=== PATIENT | female | born 1955 | race Two or more races ===

== ENCOUNTER → 2017-02-09 | Day surgery (SDC) | payer BC ==
[2017-02-05 15:13] LABS: Basophils # (auto) 0 uL; Basophils % (auto) 0.3 % (0.0-2.0); Eosinophils # (auto) 0.1 uL; Eosinophils % (auto) 2.5 % (0.0-7.0); Hematocrit 37.7 % (36.0-46.0); Hemoglobin 12.8 g/dL (12.2-16.2); Lymphocytes # (auto) 0.5 uL; Lymphocytes % (auto) 17.1 % (10.0-50.0); Mean Corpuscular Hemoglobin 30.9 pg (28.0-32.0); Mean Corpuscular Hgb Conc. 33.8 g/dL (32.0-36.0); Mean Corpuscular Volume 91.4 fL (80.0-100.0); Mean Platelet Volume 8.8 fL (7.4-10.4); Monocytes # (auto) 0.3 uL; Monocytes % (auto) 9.8 % (0.0-12.0); Neutrophils # (auto) 2.2 uL; Neutrophils % (auto) 70.3 % (37.0-80.0); Platelet Count (auto) 81 10^3/uL (140-450); Red Cell Distribution Width 16.5 % (11.6-16.0); White Blood Cell 3.2 10^3/uL (4.4-10.8)
[2017-02-05 15:29] LABS: Partial Thromboplastin Time 29.5 sec (22.64-33.71)
[2017-02-05 15:39] LABS: INR 1.32 (0.9-1.15); Prothrombin Time 13.6 sec (9.37-12.3)
[~2017-02-09] VITALS: Ht 149.9 cm; Wt 72.1 kg
[~2017-02-09] MED LIST: LIDOCAINE VISCOUS 2% 15ML UD ONE; SILD50TA42 OR; SODIUM CHLORIDE LOCK 10 ML ONE; diphenhdrAMINE HCL 50 MG/1 ML VL ONE
[2017-02-09] MEDS: MIDAZOLAM HCL 5 MG/ML-1ML VIAL ONE ×2 (11:40→11:43)
[2017-02-09] MEDS: fentaNYL CITRATE 100 MCG/2 ML VL ONE ×2 (11:40→11:43)
[2017-02-09 12:25] VITALS: BP 121/69
== END | disposition home or self-care (01) ==
LOC: GI 09:08
PROVIDERS: ATTEND Internal Medicine Gastroenterology
DX: K76.6 Portal hypertension (principal); K31.89 Other diseases of stomach and duodenum; K74.60 Unspecified cirrhosis of liver; E66.9 Obesity, unspecified; Z90.710 Acquired absence of both cervix and uterus
CPT/HCPCS: 36415; 43235; 85025; 85610; 85730; J2250

== ENCOUNTER → 2017-02-25 | Outpatient (CLI) | payer BC ==
[~2017-02-25] MED LIST changes: -LIDOCAINE VISCOUS 2% 15ML UD ONE; -SODIUM CHLORIDE LOCK 10 ML ONE; -diphenhdrAMINE HCL 50 MG/1 ML VL ONE
== END | disposition home or self-care (01) ==
LOC: LAB 15:13
PROVIDERS: ATTEND Internal Medicine
DX: Z01.818 Encounter for other preprocedural examination (principal)
CPT/HCPCS: 36415; 82565; 84520

== ENCOUNTER → 2017-03-23 | Outpatient (CLI) | payer BC ==
[2017-03-23 10:06] LABS: Basophils # (auto) 0 uL; Basophils % (auto) 0.7 % (0.0-2.0); Eosinophils # (auto) 0.1 uL; Eosinophils % (auto) 3.3 % (0.0-7.0); Hematocrit 41.6 % (36.0-46.0); Hemoglobin 13.9 g/dL (12.2-16.2); Lymphocytes # (auto) 0.6 uL; Lymphocytes % (auto) 15.1 % (10.0-50.0); Mean Corpuscular Hemoglobin 30.8 pg (28.0-32.0); Mean Corpuscular Hgb Conc. 33.5 g/dL (32.0-36.0); Mean Corpuscular Volume 92.1 fL (80.0-100.0); Mean Platelet Volume 9.1 fL (7.4-10.4); Monocytes # (auto) 0.3 uL; Monocytes % (auto) 7.8 % (0.0-12.0); Neutrophils # (auto) 2.8 uL; Neutrophils % (auto) 73.1 % (37.0-80.0); Platelet Count (auto) 104 10^3/uL (140-450); Red Cell Distribution Width 15.6 % (11.6-16.0); White Blood Cell 3.8 10^3/uL (4.4-10.8)
[2017-03-23 10:11] LABS: Partial Thromboplastin Time 28.5 sec (22.64-33.71)
[2017-03-23 10:13] LABS: INR 1.26 (0.9-1.15); Prothrombin Time 13.6 sec (9.37-12.3)
[2017-03-23 10:17] LABS: Albumin 3.3 g/dL (3.4-5.0); Calcium 8.2 mg/dL (8.5-10.1); Potassium 4.5 mmol/L (3.5-5.1)
[2017-03-23 10:20] LABS: Bilirubin, Total 3.1 mg/dL (0.2-1.0); Total Protein 6.4 g/dL (6.4-8.2)
== END | disposition home or self-care (01) ==
LOC: LAB 08:46
PROVIDERS: ATTEND Internal Medicine
DX: B19.20 Unspecified viral hepatitis C without hepatic coma (principal); K74.60 Unspecified cirrhosis of liver
CPT/HCPCS: 36415; 80053; 82105; 84443; 85025; 85610; 85730

== ENCOUNTER → 2017-06-02 | Outpatient (CLI) | payer BC | END | disposition home or self-care (01) | LOC: EDSTATUS 08:35 → XYW 08:36 | PROVIDERS: ATTEND Internal Medicine | DX: I10 Essential (primary) hypertension (principal) | CPT/HCPCS: 93306 ==

== ENCOUNTER → 2017-07-31 | Outpatient (CLI) | payer BC ==
[2017-07-31 07:44] LABS: Basophils # (auto) 0 uL; Basophils % (auto) 0.6 % (0.0-2.0); Eosinophils # (auto) 0.1 uL; Eosinophils % (auto) 3.9 % (0.0-7.0); Hematocrit 41.1 % (36.0-46.0); Hemoglobin 13.9 g/dL (12.2-16.2); Lymphocytes # (auto) 0.7 uL; Lymphocytes % (auto) 19.6 % (10.0-50.0); Mean Corpuscular Hemoglobin 31.3 pg (28.0-32.0); Mean Corpuscular Hgb Conc. 33.8 g/dL (32.0-36.0); Mean Corpuscular Volume 92.6 fL (80.0-100.0); Mean Platelet Volume 9.1 fL (6.9-10.8); Monocytes # (auto) 0.4 uL; Monocytes % (auto) 10.7 % (0.0-12.0); Neutrophils # (auto) 2.5 uL; Neutrophils % (auto) 65.2 % (37.0-80.0); Nucleated Red Blood Cells % 0.1 %; Platelet Count (auto) 68 10^3/uL (140-450); Red Cell Distribution Width 15.6 % (11.8-14.3); White Blood Cell 3.8 10^3/uL (4.4-10.8)
[2017-07-31 08:05] LABS: Albumin 3.2 g/dL (3.4-5.0); BUN/Creatinine Ratio 27.9; Bilirubin, Total 3.2 mg/dL (0.2-1.0); Calcium 8.3 mg/dL (8.5-10.1); Potassium 4.5 mmol/L (3.5-5.1); Total Protein 6.4 g/dL (6.4-8.2)
== END | disposition home or self-care (01) ==
LOC: LAB 06:35
PROVIDERS: ATTEND Internal Medicine
DX: K73.9 Chronic hepatitis, unspecified (principal); K74.60 Unspecified cirrhosis of liver
CPT/HCPCS: 36415; 80053; 82105; 85025

== ENCOUNTER 2017-08-15 05:24 | Emergency (ER) | payer BC ==
[~2017-08-15] VITALS: Ht 149.9 cm; Wt 77.1 kg
[2017-08-15 07:57] LABS: Basophils # (auto) 0 uL; Eosinophils # (auto) 0 uL; Eosinophils % (auto) 0.9 % (0.0-7.0); Hemoglobin 13.7 g/dL (12.2-16.2); Lymphocytes # (auto) 0.4 uL; Mean Corpuscular Hemoglobin 31.2 pg (28.0-32.0); Mean Platelet Volume 8.5 fL (6.9-10.8); Monocytes # (auto) 0.3 uL; Neutrophils # (auto) 3.1 uL; White Blood Cell 3.9 10^3/uL (4.4-10.8)
[2017-08-15 07:59] LABS: Basophils % (auto) 0.3 % (0.0-2.0); Hematocrit 40.6 % (36.0-46.0); Lymphocytes % (auto) 11.4 % (10.0-50.0); Mean Corpuscular Hgb Conc. 33.7 g/dL (32.0-36.0); Mean Corpuscular Volume 92.6 fL (80.0-100.0); Monocytes % (auto) 8.8 % (0.0-12.0); Neutrophils % (auto) 78.6 % (37.0-80.0); Nucleated Red Blood Cells % 0.2 %; Red Cell Distribution Width 16.1 % (11.8-14.3)
[2017-08-15 08:15] LABS: Platelet Count (auto) 53 10^3/uL (140-450)
[2017-08-15 08:24] LABS: BUN/Creatinine Ratio 22.6; Calcium 7.8 mg/dL (8.5-10.1)
[2017-08-15 08:25] LABS: Bilirubin, Total 3.9 mg/dL (0.2-1.0); Total Protein 6.1 g/dL (6.4-8.2)
[2017-08-15] MEDS ORDERED: PANTOPRAZOLE 40 MG TAB PO ONE (08:45)
[2017-08-15 09:20] LABS: Large Platelets FEW; Platelet Estimate Decreased
[2017-08-15 09:21] LABS: Ovalocytes FEW
[2017-08-15] MEDS ORDERED: MORPHINE SULF INJ 2 MG/ML SYRINGE 1ML IV ONE (09:45)
[2017-08-15] MEDS ORDERED: ONDANSETRON HCL 4 MG/2 ML VIAL IV ONE (09:45)
[2017-08-15 10:02] LABS: Urine Bilirubin Negative (Negative); Urine Blood 2+ /uL (Negative); Urine Color Yellow (Yellow); Urine Glucose Normal (Normal); Urine Ketone Negative (Negative); Urine Nitrite Negative (Negative); Urine RBC 15 /hpf (0 - 4); Urine Squamous Epithelial Cell FEW /hpf (<5)
[2017-08-15 10:05] VITALS: BP 134/66
== END 2017-08-15 12:04 | disposition home or self-care (01) ==
LOC: ER 05:29
DX: K74.60 Unspecified cirrhosis of liver (principal); K76.9 Liver disease, unspecified; Z90.710 Acquired absence of both cervix and uterus; Z88.6 Allergy status to analgesic agent; Z88.8 Allergy status to other drugs, medicaments and biological substances
CPT/HCPCS: 36415; 74176; 80053; 81001; 85025; 96374; 96375; 99285; J2270; J2405; J7030

== ENCOUNTER → 2017-11-30 | Outpatient (CLI) | payer BC ==
[2017-11-30 08:51] LABS: Basophils # (auto) 0 uL; Basophils % (auto) 0.7 % (0.0-2.0); Eosinophils # (auto) 0.1 uL; Eosinophils % (auto) 2.6 % (0.0-7.0); Hematocrit 38.9 % (36.0-46.0); Hemoglobin 13.1 g/dL (12.2-16.2); Lymphocytes # (auto) 0.7 uL; Lymphocytes % (auto) 18.6 % (10.0-50.0); Mean Corpuscular Hemoglobin 31.4 pg (28.0-32.0); Mean Corpuscular Hgb Conc. 33.6 g/dL (32.0-36.0); Mean Corpuscular Volume 93.4 fL (80.0-100.0); Monocytes # (auto) 0.4 uL; Monocytes % (auto) 9.5 % (0.0-12.0); Neutrophils # (auto) 2.6 uL; Neutrophils % (auto) 68.6 % (37.0-80.0); Nucleated Red Blood Cells % 0.2 %; Platelet Count (auto) 88 10^3/uL (140-450); Red Blood Cells 4.17 10^6/uL (4.0-5.20); Red Cell Distribution Width 16.4 % (11.8-14.3); White Blood Cell 3.8 10^3/uL (4.4-10.8)
[2017-11-30 09:11] LABS: Albumin 3.1 g/dL (3.4-5.0); BUN/Creatinine Ratio 23.4; Bilirubin, Total 3.7 mg/dL (0.2-1.0); Calcium 7.6 mg/dL (8.5-10.1); Potassium 3.9 mmol/L (3.5-5.1); Total Protein 6.4 g/dL (6.4-8.2)
[2017-11-30 09:12] LABS: INR 1.2 (0.9-1.15); Prothrombin Time 13.1 sec (9.37-12.3)
== END | disposition home or self-care (01) ==
LOC: LAB 08:07
PROVIDERS: ATTEND Internal Medicine Gastroenterology
DX: B18.2 Chronic viral hepatitis C (principal); K31.89 Other diseases of stomach and duodenum; R18.8 Other ascites
CPT/HCPCS: 36415; 80053; 82105; 85025; 85610

== ENCOUNTER 2018-03-10 05:14 | Inpatient (IN) | payer BC ==
[~2018-03-10] VITALS: Ht 149.9 cm; Wt 79.8 kg
[2018-03-10 07:22] LABS: Anion Gap 9 (5-15); BUN/Creatinine Ratio 30.4; Blood Urea Nitrogen 17 mg/dL (7-18); Carbon Dioxide 21 mmol/L (21-32); Chloride 110 mmol/L (98-107); GFR African American 141 mL/min; GFR Non-African American 116 mL/min; Glucose 115 mg/dL (74-106); Potassium 3.8 mmol/L (3.5-5.1); Sodium 140 mmol/L (136-145)
[2018-03-10 07:23] LABS: Alanine Aminotransferase 55 U/L (13-56); Albumin 2.8 g/dL (3.4-5.0); Aspartate Aminotransferase 66 U/L (15-37); Basophils # (auto) 0 uL; Calcium 8.1 mg/dL (8.5-10.1); Eosinophils # (auto) 0.1 uL
[2018-03-10 07:27] LABS: Alkaline Phosphatase 164 U/L (45-117); Bilirubin, Total 4.5 mg/dL (0.2-1.0); Total Protein 6.7 g/dL (6.4-8.2)
[2018-03-10 07:29] LABS: Basophils % (auto) 0.6 % (0.0-2.0); Eosinophils % (auto) 2.1 % (0.0-7.0); Hematocrit 41.5 % (36.0-46.0); Lymphocytes # (auto) 0.7 uL; Mean Corpuscular Hgb Conc. 33.8 g/dL (32.0-36.0); Mean Corpuscular Volume 91.7 fL (80.0-100.0); Monocytes # (auto) 0.5 uL; Monocytes % (auto) 10.9 % (0.0-12.0); Neutrophils # (auto) 3.6 uL; Neutrophils % (auto) 72.4 % (37.0-80.0); Nucleated Red Blood Cells % 0.8 %; Platelet Count (auto) 62 10^3/uL (140-450); Red Blood Cells 4.52 10^6/uL (4.0-5.20); Red Cell Distribution Width 16.9 % (11.8-14.3)
[2018-03-10] MEDS ORDERED: KETOROLAC TROMETH 30 MG/ML 1ML VIAL IV ONE (07:45)
[2018-03-10] MEDS ORDERED: cefTRIAXone 1GM/10ml IVPUSH 10 ML IV ONE (07:45)
[2018-03-10] MEDS ORDERED: HYDROcodone-ACET 5/325MG TAB PO PRN (12:15)
[2018-03-10] MEDS ORDERED: LORazepam 0.5 MG TAB PO PRN (12:15)
[2018-03-10] MEDS ORDERED: PROMETHAZINE HCL 25 MG/ML 1ML IV PRN (12:15)
[2018-03-10] MEDS ORDERED: ACETAMINOPHEN 500 MG TAB PO PRN (12:15)
[2018-03-10] MEDS ORDERED: LACTULOSE 20Gm/30ML SOLN PO PRN (12:15)
[2018-03-10] MEDS ORDERED: MORPHINE SULFATE 8mg/ml INJ SDV IV PRN ×2 (12:15)
[2018-03-10] MEDS ORDERED: NITROGLYCERIN 0.4 MG SL TAB SL PRN (12:15)
[2018-03-10] MEDS: SODIUM CHLORIDE 0.9% 1,000 ML IV SCH (13:00)
[2018-03-10 14:31] LABS: Uric Acid 4.5 mg/dL (2.6-6.0)
[2018-03-10 15:15] VITALS: BP 120/57
[2018-03-10] MEDS: SILDENAFIL CITRATE 20 MG TAB PO SCH ×2 (15:16→21:20)
[2018-03-10] MEDS: CLINDAMYCIN 600MG IV 50 ML IV SCH ×2 (15:17→21:19)
[2018-03-10 15:29] VITALS: BP 140/64
[2018-03-10 16:23] LABS: INR 1.23 (0.9-1.15); Partial Thromboplastin Time 30.6 sec (22.64-33.71); Prothrombin Time 13.4 sec (9.37-12.3)
[2018-03-10 17:04] VITALS: BP 120/57
[2018-03-10] MEDS: TEMAZEPAM 15 MG CAP PO PRN (21:20)
[2018-03-10 22:00] VITALS: BP 127/60
[2018-03-10 22:25] LABS: Urine Bacteria NONE SEEN /hpf (None Seen); Urine Blood 1+ /uL (Negative); Urine Mucus FEW (None Seen); Urine Specific Gravity 1.031 (1.001-1.035); Urine WBC 36 /hpf (0 - 5)
[2018-03-11] MEDS: SODIUM CHLORIDE 0.9% 1,000 ML IV SCH ×2 (00:48→08:48)
[2018-03-11] MEDS: SILDENAFIL CITRATE 20 MG TAB PO SCH ×3 (05:12→21:17)
[2018-03-11] MEDS: CLINDAMYCIN 600MG IV 50 ML IV SCH ×3 (05:12→21:17)
[2018-03-11 05:28] VITALS: BP 113/55
[2018-03-11 05:59] LABS: Basophils # (auto) 0 uL; Eosinophils # (auto) 0.1 uL; Hematocrit 34.5 % (36.0-46.0); Hemoglobin 11.7 g/dL (12.2-16.2); Lymphocytes # (auto) 0.6 uL; Monocytes # (auto) 0.4 uL; Neutrophils # (auto) 2.3 uL
[2018-03-11 06:04] LABS: Basophils % (auto) 0.4 % (0.0-2.0); Eosinophils % (auto) 3.9 % (0.0-7.0); Lymphocytes % (auto) 16.7 % (10.0-50.0); Mean Corpuscular Hemoglobin 31.6 pg (28.0-32.0); Mean Corpuscular Volume 92.9 fL (80.0-100.0); Monocytes % (auto) 12.6 % (0.0-12.0); Neutrophils % (auto) 66.4 % (37.0-80.0); Nucleated Red Blood Cells % 0.3 %; Platelet Count (auto) 61 10^3/uL (140-450); Red Blood Cells 3.71 10^6/uL (4.0-5.20); Red Cell Distribution Width 16.9 % (11.8-14.3); White Blood Cell 3.4 10^3/uL (4.4-10.8)
[2018-03-11 06:37] LABS: Albumin 2.3 g/dL (3.4-5.0); BUN/Creatinine Ratio 46.5; Bilirubin, Total 2.7 mg/dL (0.2-1.0); Calcium 7.5 mg/dL (8.5-10.1); Potassium 3.8 mmol/L (3.5-5.1); Total Protein 5.5 g/dL (6.4-8.2)
[2018-03-11 09:00] VITALS: BP 109/42
[2018-03-11] MEDS: cefTRIAXone 1GM/10ml IVPUSH 10 ML IV SCH (09:06)
[2018-03-11] MEDS: PANTOPRAZOLE 40 MG TAB PO SCH (10:00)
[2018-03-11] MEDS ORDERED: ENOXAPARIN SOD 40 MG/0.4 ML SYRINGE SC SCH (10:00)
[2018-03-11 13:00] VITALS: BP 133/74
[2018-03-11 18:21] VITALS: BP 137/79
[2018-03-11] MEDS: TEMAZEPAM 15 MG CAP PO PRN (21:17)
[2018-03-11 22:00] VITALS: BP 133/68
[2018-03-12 05:12] VITALS: BP 94/33
[2018-03-12] MEDS: CLINDAMYCIN 600MG IV 50 ML IV SCH (05:21)
[2018-03-12] MEDS: SILDENAFIL CITRATE 20 MG TAB PO SCH (05:21)
[2018-03-12] MEDS: cefTRIAXone 1GM/10ml IVPUSH 10 ML IV SCH (08:49)
[2018-03-12 09:00] VITALS: BP 118/53
[2018-03-12] MEDS ORDERED: CLIN1CAP4 PO (09:53)
[2018-03-12] MEDS: PANTOPRAZOLE 40 MG TAB PO SCH (09:53)
[2018-03-12] MEDS ORDERED: FUROSEMIDE 40 MG/4 ML VIAL IV ONE (10:00)
[2018-03-12] MEDS ORDERED: ALBUMIN 25% 100 ML IV ONE (10:00)
[2018-03-12] MEDS ORDERED: POTASSIUM CHL 20 Meq TABLET PO ONE (10:00)
[2018-03-12] MEDS ORDERED: CELECOXIB 100 MG CAP PO SCH (10:00)
[2018-03-12 12:02] VITALS: BP 118/53
== END 2018-03-12 14:20 | disposition home or self-care (01) | DRG 433 ==
LOC: ER 05:17 → TELE 05:18 → TELE-WESTW 14:50 → WEST WING 03-11 17:33
PROVIDERS: ADMIT Internal Medicine; ATTEND Internal Medicine
DX: K74.60 Unspecified cirrhosis of liver (principal); L03.116 Cellulitis of left lower limb; D61.818 Other pancytopenia; E44.0 Moderate protein-calorie malnutrition; I27.0 Primary pulmonary hypertension; E78.5 Hyperlipidemia, unspecified; K59.00 Constipation, unspecified; F41.9 Anxiety disorder, unspecified; G47.00 Insomnia, unspecified; K80.20 Calculus of gallbladder without cholecystitis without obstruction; S91.302A Unspecified open wound, left foot, initial encounter; B19.20 Unspecified viral hepatitis C without hepatic coma; X58.XXXA Exposure to other specified factors, initial encounter; Z83.3 Family history of diabetes mellitus; Z90.710 Acquired absence of both cervix and uterus; Z68.35 Body mass index [BMI] 35.0-35.9, adult; Z79.899 Other long term (current) drug therapy; Y93.89 Activity, other specified; Y92.89 Other specified places as the place of occurrence of the external cause; Y99.8 Other external cause status
CPT/HCPCS: 36415; 73630; 73700; 80053; 80061; 81001; 83880; 84484; 84550; 85025; 85610; 85652; 85730; 87040; 93971; 96361; 96374; 96376; J1885; J3490; P9047

== ENCOUNTER 2018-06-29 09:41 | Inpatient (IN) | payer BC ==
[~2018-06-29] VITALS: Ht 149.9 cm; Wt 73.0 kg
[~2018-06-29 09:41] MED LIST changes: +FURO20TA PO; +POTA1TAB61 PO; +SPIR25TA88 PO
[2018-06-29 10:00] VITALS: BP 139/53
[2018-06-29] MEDS ORDERED: LEVO25TA6 PO (11:57)
[2018-06-29] MEDS ORDERED: PANT40TA2 PO (11:57)
[2018-06-29] MEDS ORDERED: PROP60CA34 PO (11:57)
[2018-06-29] MEDS ORDERED: FUROSEMIDE 40 MG/4 ML VIAL IV ONE (12:30)
[2018-06-29] MEDS ORDERED: POTASSIUM CHL 20 Meq TABLET PO ONE (12:30)
[2018-06-29 12:38] VITALS: BP_SYST 131; BP_SYST 140; BP_DIAS 61; BP_DIAS 73
[2018-06-29 13:09] LABS: Basophils # (auto) 0 uL; Eosinophils # (auto) 0.1 uL; Eosinophils % (auto) 2.3 % (0.0-7.0); Hemoglobin 11.5 g/dL (12.2-16.2); Lymphocytes # (auto) 0.4 uL; Mean Corpuscular Volume 90.8 fL (80.0-100.0); Monocytes # (auto) 0.3 uL; Platelet Count (auto) 58 10^3/uL (140-450); White Blood Cell 3.6 10^3/uL (4.4-10.8)
[2018-06-29 13:11] LABS: Basophils % (auto) 0.5 % (0.0-2.0); Hematocrit 33.8 % (36.0-46.0); Lymphocytes % (auto) 12.1 % (10.0-50.0); Mean Corpuscular Hemoglobin 30.9 pg (28.0-32.0); Monocytes % (auto) 7.8 % (0.0-12.0); Neutrophils # (auto) 2.8 uL; Neutrophils % (auto) 77.3 % (37.0-80.0); Nucleated Red Blood Cells % 0.1 %; Red Blood Cells 3.73 10^6/uL (4.0-5.20); Red Cell Distribution Width 16.1 % (11.8-14.3)
[2018-06-29] MEDS: ceFAZolin 1GM/50ML 50 ML IV SCH ×2 (13:14→21:59)
[2018-06-29] MEDS: SILDENAFIL CITRATE 20 MG TAB PO SCH ×2 (13:16→21:59)
[2018-06-29 13:25] LABS: Albumin 2.4 g/dL (3.4-5.0); BUN/Creatinine Ratio 40.7; Calcium 7.8 mg/dL (8.5-10.1); INR 1.33 (0.9-1.15); Partial Thromboplastin Time 29.6 sec (23.78-33.04); Potassium 4.1 mmol/L (3.5-5.1)
[2018-06-29 13:37] LABS: Bilirubin, Total 2.5 mg/dL (0.2-1.0)
[2018-06-29 16:54] VITALS: BP 125/65
[2018-06-29] MEDS: SPIRONOLACTONE 25 MG TAB PO SCH (17:33)
[2018-06-29 18:55] LABS: Urine Bacteria FEW /hpf (None Seen); Urine Blood 2+ /uL (Negative); Urine Specific Gravity 1.005 (1.001-1.035); Urine WBC 1 /hpf (0 - 5)
[2018-06-29 22:00] VITALS: BP 123/57
[2018-06-30] MEDS ORDERED: traMADol HCL 50 MG TAB PO ONE (02:00)
[2018-06-30 05:00] VITALS: BP 112/49
[2018-06-30] MEDS: SPIRONOLACTONE 25 MG TAB PO SCH ×2 (06:52→17:21)
[2018-06-30] MEDS: ceFAZolin 1GM/50ML 50 ML IV SCH ×3 (06:52→23:18)
[2018-06-30] MEDS: LEVOTHYROXINE SODIUM 25 MCG TAB PO SCH (06:53)
[2018-06-30 08:00] VITALS: BP 122/63
[2018-06-30] MEDS: SILDENAFIL CITRATE 20 MG TAB PO SCH ×3 (08:09→21:52)
[2018-06-30 08:28] VITALS: BP 122/63
[2018-06-30] MEDS: FUROSEMIDE 40 MG TAB PO SCH (09:37)
[2018-06-30] MEDS: POTASSIUM CHL 20 Meq TABLET PO SCH (09:37)
[2018-06-30] MEDS ORDERED: FUROSEMIDE 40 MG/4 ML VIAL IV ONE (11:15)
[2018-06-30] MEDS ORDERED: traMADol HCL 50 MG TAB PO PRN (11:15)
[2018-06-30] MEDS ORDERED: POTASSIUM CHL 20 Meq TABLET PO ONE (11:15)
[2018-06-30 12:30] VITALS: BP 122/85
[2018-06-30 16:36] VITALS: BP 111/57
[2018-06-30 21:30] VITALS: BP 115/54
[2018-07-01 05:00] VITALS: BP 116/56
[2018-07-01] MEDS: ceFAZolin 1GM/50ML 50 ML IV SCH ×2 (06:19→13:11)
[2018-07-01 06:42] LABS: Albumin 2.2 g/dL (3.4-5.0); BUN/Creatinine Ratio 35.9; Calcium 7.3 mg/dL (8.5-10.1); Potassium 3.9 mmol/L (3.5-5.1)
[2018-07-01 06:45] LABS: Bilirubin, Total 2.5 mg/dL (0.2-1.0); Total Protein 5.6 g/dL (6.4-8.2)
[2018-07-01] MEDS: LEVOTHYROXINE SODIUM 25 MCG TAB PO SCH (07:00)
[2018-07-01] MEDS: SPIRONOLACTONE 25 MG TAB PO SCH (07:06)
[2018-07-01] MEDS: SILDENAFIL CITRATE 20 MG TAB PO SCH ×2 (07:25→13:11)
[2018-07-01 08:00] VITALS: BP 114/57
[2018-07-01 09:07] VITALS: BP 114/57
[2018-07-01] MEDS: FUROSEMIDE 40 MG TAB PO SCH (09:29)
[2018-07-01] MEDS: POTASSIUM CHL 20 Meq TABLET PO SCH (09:29)
[2018-07-01 13:04] VITALS: BP 114/57
== END 2018-07-01 14:20 | disposition home or self-care (01) | DRG 603 ==
LOC: EAST 09:43
PROVIDERS: ADMIT Internal Medicine; ATTEND Internal Medicine
DX: L03.116 Cellulitis of left lower limb (principal); I27.20 Pulmonary hypertension, unspecified; K74.60 Unspecified cirrhosis of liver; E03.9 Hypothyroidism, unspecified; E87.70 Fluid overload, unspecified; B19.20 Unspecified viral hepatitis C without hepatic coma; Z88.5 Allergy status to narcotic agent
CPT/HCPCS: 36415; 73030; 80053; 81001; 84443; 85025; 85610; 85730; 87081; 93306; 93971; J0690

== ENCOUNTER 2018-07-27 10:56 | Emergency (ER) | payer BC ==
[~2018-07-27] VITALS: Ht 149.9 cm; Wt 68.0 kg
[~2018-07-27 10:56] MED LIST changes: -FURO20TA PO; +LEVO25TA6 PO; +PANT40TA2 PO; -POTA1TAB61 PO; +PROP60CA34 PO; -SPIR25TA88 PO
[2018-07-27 13:24] LABS: Basophils # (auto) 0 uL; Basophils % (auto) 0.3 % (0.0-2.0); Eosinophils # (auto) 0 uL; Lymphocytes # (auto) 0.4 uL; Monocytes # (auto) 0.3 uL; Neutrophils # (auto) 3.1 uL; Nucleated Red Blood Cells % 0.1 %; White Blood Cell 3.8 10^3/uL (4.4-10.8)
[2018-07-27 13:27] LABS: Eosinophils % (auto) 0.4 % (0.0-7.0); Hematocrit 36.5 % (36.0-46.0); Hemoglobin 12.3 g/dL (12.2-16.2); Lymphocytes % (auto) 9.8 % (10.0-50.0); Mean Corpuscular Hemoglobin 31.6 pg (28.0-32.0); Mean Corpuscular Hgb Conc. 33.8 g/dL (32.0-36.0); Mean Corpuscular Volume 93.4 fL (80.0-100.0); Monocytes % (auto) 7.2 % (0.0-12.0); Neutrophils % (auto) 82.3 % (37.0-80.0); Platelet Count (auto) 61 10^3/uL (140-450); Red Blood Cells 3.91 10^6/uL (4.0-5.20); Red Cell Distribution Width 16.2 % (11.8-14.3)
[2018-07-27 13:48] LABS: Albumin 2.8 g/dL (3.4-5.0); Bilirubin, Total 3.5 mg/dL (0.2-1.0); Potassium 4.4 mmol/L (3.5-5.1); Total Protein 6.8 g/dL (6.4-8.2)
[2018-07-27] MEDS ORDERED: LACTULOSE 20Gm/30ML SOLN PO ONE (14:30)
[2018-07-27 16:39] VITALS: BP 143/67
== END 2018-07-27 16:30 | disposition home or self-care (01) ==
LOC: ER 10:56
DX: K76.9 Liver disease, unspecified (principal); I10 Essential (primary) hypertension; Z90.710 Acquired absence of both cervix and uterus; Z88.6 Allergy status to analgesic agent
CPT/HCPCS: 36415; 70450; 80053; 82140; 82962; 83880; 84484; 85025; 93005

== ENCOUNTER → 2018-07-29 | Outpatient (CLI) | payer BC | END | disposition home or self-care (01) | LOC: LAB 13:30 | PROVIDERS: ATTEND Internal Medicine | DX: G93.40 Encephalopathy, unspecified (principal); Z88.9 Allergy status to unspecified drugs, medicaments and biological substances | CPT/HCPCS: 82140 ==

== ENCOUNTER → 2018-12-13 | Outpatient (CLI) | payer BC ==
[~2018-12-13] MED LIST changes: +CYANOCOBALAMIN (B-12) 1000 MCG/1 ML VIAL IM ONE; +CYANOCOBALAMIN (B-12) 1000 MCG/1 ML VIAL ONE
[2018-12-13 11:45] VITALS: BP 156/70
--- NOTE | 2018-12-13 11:45 | NUR ---
CHF PT TO CHF CLINIC FOR PAH REEVAL AND SOB. MD TO ORDERED MONTHLY CHF VISITS FOR PAH MED MANAGEMENT AND SYMPTOMS MANAGEMENT. MD TO ORDERED LABS, CARDIODYNAMICS, 6MW, VIT B 12 INJECTION 1000MCG IM.
[2018-12-13 13:15] VITALS: BP 156/70
--- NOTE | 2018-12-13 13:15 | NUR ---
CHF Discharge Instructions See e-MAR for any mediations given with this visit. Patient education given on disease process. Patient verbalized understanding. Previous labs reviewed. Patient discharged in stable condition with after care instructions and follow up appointment. FOLLOW UP IN 1 MONTH AT CHF CLINIC FOR PAH REEVAL. PT VERB UNDERSTANDING .
[2018-12-13 16:23] LABS: Basophils # (auto) 0 uL; Eosinophils # (auto) 0.1 uL; Hemoglobin 12.6 g/dL (12.2-16.2); Lymphocytes # (auto) 0.5 uL; Monocytes # (auto) 0.3 uL; Red Cell Distribution Width 15.6 % (11.8-14.3)
[2018-12-13 16:25] LABS: Albumin 2.6 g/dL (3.4-5.0); Basophils % (auto) 0.6 % (0.0-2.0); Calcium 7.7 mg/dL (8.5-10.1); Eosinophils % (auto) 2.9 % (0.0-7.0); Hematocrit 37.7 % (36.0-46.0); Lymphocytes % (auto) 16.5 % (10.0-50.0); Mean Corpuscular Hemoglobin 30.7 pg (28.0-32.0); Mean Corpuscular Hgb Conc. 33.4 g/dL (32.0-36.0); Mean Corpuscular Volume 91.9 fL (80.0-100.0); Monocytes % (auto) 10.3 % (0.0-12.0); Neutrophils # (auto) 2.2 uL; Neutrophils % (auto) 69.7 % (37.0-80.0); Nucleated Red Blood Cells % 0.2 %; Platelet Count (auto) 61 10^3/uL (140-450); Potassium 4.8 mmol/L (3.5-5.1); White Blood Cell 3.2 10^3/uL (4.4-10.8)
[2018-12-13 16:28] LABS: Bilirubin, Total 3.1 mg/dL (0.2-1.0); Total Protein 6.1 g/dL (6.4-8.2)
== END | disposition home or self-care (01) ==
LOC: CHF HDHVI 12:33
PROVIDERS: ATTEND Internal Medicine Cardiovascular Disease
DX: I27.0 Primary pulmonary hypertension (principal); E55.9 Vitamin D deficiency, unspecified; D64.9 Anemia, unspecified; B19.20 Unspecified viral hepatitis C without hepatic coma
CPT/HCPCS: 36415; 80053; 82306; 83735; 85025; 93701; 94618; 96372; G0463; J3420

== ENCOUNTER → 2019-01-04 | Outpatient (CLI) | payer BC ==
[~2019-01-04] MED LIST changes: -CYANOCOBALAMIN (B-12) 1000 MCG/1 ML VIAL IM ONE; -CYANOCOBALAMIN (B-12) 1000 MCG/1 ML VIAL ONE
[2019-01-04 14:58] LABS: Basophils # (auto) 0 uL; Eosinophils # (auto) 0.1 uL; Hemoglobin 11.7 g/dL (12.2-16.2); Lymphocytes # (auto) 0.5 uL; Monocytes # (auto) 0.3 uL; Monocytes % (auto) 8.9 % (0.0-12.0); Neutrophils # (auto) 2.1 uL
[2019-01-04 15:00] LABS: Basophils % (auto) 0.6 % (0.0-2.0); Eosinophils % (auto) 3.7 % (0.0-7.0); Hematocrit 34.9 % (36.0-46.0); Lymphocytes % (auto) 17.3 % (10.0-50.0); Mean Corpuscular Hemoglobin 30.4 pg (28.0-32.0); Mean Corpuscular Hgb Conc. 33.4 g/dL (32.0-36.0); Mean Corpuscular Volume 91.1 fL (80.0-100.0); Neutrophils % (auto) 69.5 % (37.0-80.0); Nucleated Red Blood Cells % 0.3 %; Platelet Count (auto) 58 10^3/uL (140-450); Red Blood Cells 3.84 10^6/uL (4.0-5.20); Red Cell Distribution Width 15.7 % (11.8-14.3)
[2019-01-04 15:10] LABS: INR 1.38 (0.9-1.15); Prothrombin Time 14.5 sec (9.27-12.13)
[2019-01-04 15:28] LABS: Albumin 2.7 g/dL (3.4-5.0); Calcium 7.9 mg/dL (8.5-10.1); Potassium 3.8 mmol/L (3.5-5.1)
[2019-01-04 15:31] LABS: BUN/Creatinine Ratio 30.2; Bilirubin, Total 3.2 mg/dL (0.2-1.0)
== END | disposition home or self-care (01) ==
LOC: LAB 14:22
PROVIDERS: ATTEND Internal Medicine
DX: K74.60 Unspecified cirrhosis of liver (principal); B18.2 Chronic viral hepatitis C
CPT/HCPCS: 36415; 80053; 82105; 85025; 85610; 87522

== ENCOUNTER 2019-01-31 22:04 | Inpatient (IN) | payer BC ==
[~2019-01-31] VITALS: Ht 149.9 cm; Wt 80.1 kg
[2019-01-31 22:58] LABS: Basophils # (auto) 0 uL; Basophils % (auto) 0.5 % (0.0-2.0); Eosinophils # (auto) 0.1 uL; Eosinophils % (auto) 2.3 % (0.0-7.0); Hematocrit 35.5 % (36.0-46.0); Hemoglobin 11.7 g/dL (12.2-16.2); Lymphocytes # (auto) 0.6 uL; Lymphocytes % (auto) 11.9 % (10.0-50.0); Mean Corpuscular Hemoglobin 30.5 pg (28.0-32.0); Mean Corpuscular Hgb Conc. 32.9 g/dL (32.0-36.0); Mean Corpuscular Volume 92.7 fL (80.0-100.0); Monocytes # (auto) 0.4 uL; Monocytes % (auto) 8.8 % (0.0-12.0); Neutrophils # (auto) 3.7 uL; Neutrophils % (auto) 76.5 % (37.0-80.0); Nucleated Red Blood Cells % 0.1 %; Platelet Count (auto) 66 10^3/uL (140-450); Red Blood Cells 3.83 10^6/uL (4.0-5.20); Red Cell Distribution Width 17.1 % (11.8-14.3); White Blood Cell 4.8 10^3/uL (4.4-10.8)
[2019-01-31 23:03] LABS: INR 1.34 (0.9-1.15); Partial Thromboplastin Time 28.1 sec (23.78-33.04); Prothrombin Time 14.1 sec (9.27-12.13)
[2019-01-31 23:04] LABS: Albumin 2.6 g/dL (3.4-5.0); BUN/Creatinine Ratio 24.7; Calcium 7.8 mg/dL (8.5-10.1); Potassium 4.1 mmol/L (3.5-5.1)
[2019-02-01] MEDS ORDERED: LEVOFLOXACIN 750MG 150 ML IV ONE (04:15)
[2019-02-01] MEDS ORDERED: PROMETHAZINE W/CODEINE 5 ML ORAL SYRUP PO PRN (05:00)
[2019-02-01] MEDS ORDERED: ALBUTEROL SULF 2.5 MG/0.5ML(0.5%) NEB SOLN NEB PRN ×2 (05:30→07:00)
[2019-02-01] MEDS ORDERED: MORPHINE SULF INJ 2 MG/ML SYRINGE 1ML IV PRN ×2 (07:00→07:15)
[2019-02-01] MEDS ORDERED: NITROGLYCERIN 0.4 MG SL TAB SL PRN (07:00)
[2019-02-01] MEDS ORDERED: ONDANSETRON HCL 4 MG/2 ML VIAL IV PRN (07:00)
[2019-02-01] MEDS ORDERED: TEMAZEPAM 15 MG CAP PO PRN (07:00)
[2019-02-01] MEDS ORDERED: ACETAMINOPHEN 325 MG TAB PO PRN (07:00)
[2019-02-01] MEDS ORDERED: FUROSEMIDE 20 MG/2 ML VIAL IV ONE (07:00)
--- NOTE | 2019-02-01 07:01 | NUR ---
Respiratory note: PT ASSESSED FOR PRN TX. HR 92, RR 18, POX 98% ON 2L/M NASAL CANNULA, BREATH SOUNDS ARE COARSE. NO SOB OF BREATH OR DISTRESS NOTED AT THIS TIME. PT WAS NOTIFY TO HAVE RN PAGE RT FOR MN TX.
[2019-02-01 07:08] VITALS: BP 145/57
[2019-02-01] MEDS: LEVOTHYROXINE SODIUM 25 MCG TAB PO SCH (07:58)
[2019-02-01] MEDS: SILDENAFIL CITRATE 20 MG TAB PO SCH ×3 (08:00→19:56)
[2019-02-01] MEDS ORDERED: FAMOTIDINE 20 MG TAB PO SCH (10:00)
[2019-02-01] MEDS: PROPRANOLOL HCL 20 MG TAB PO SCH (10:08)
[2019-02-01] MEDS: FUROSEMIDE 20 MG TAB PO SCH (10:09)
[2019-02-01] MEDS: PANTOPRAZOLE 40 MG TAB PO SCH (10:09)
--- NOTE | 2019-02-01 12:00 | NUR ---
CAME FROM ER ON WC, ALERT AND ORIENTED X4, NOT IN DISTRESS, MARYELLEN SOUNDS CLEAR IN BILATERAL AND LEFT LOWER AND DIMINISHED IN RT LOWER LUNG LOBES, RR=20 SAT=98%, COUGHING DRY COUGH, DENIED SOB, SR R=82 ON TELE MONITOR, DENIED CP, ABDOMEN SOFT WITH ACTIVE BS, LAST BM= THIS MORNING REPORTED, SKIN INTACT, WARM TO TOUCH, RADIAL AND PEDAL PULES PALPABLE, VS T=98.6 RR=20 SAT=98% P=85 DR=520/65, AMBULATED TO BR, TOLERATED WELL, PENDING CARDIAC CONSULT, FAMILY AT BED SIDE, WILL CONTINUE MONITORING.
[2019-02-01 12:30] VITALS: BP 109/65
[2019-02-01 13:02] VITALS: BP 116/52
--- NOTE | 2019-02-01 16:00 | NUR ---
SPUTUM SAMPLE FOR S/C SENT TO THE LAB, TOLERATED LUNCH TRAY WELL, RESTING ON BED, FAMILY AT BED SIDE, WILL CONTINUE MONITORING.
[2019-02-01 16:52] VITALS: BP 123/59
[2019-02-01] MEDS: SPIRONOLACTONE 25 MG TAB PO SCH (18:43)
--- NOTE | 2019-02-01 19:25 | NUR ---
NOT IN DISTRESS, DENIED PAIN, RESTING ON BED, REPORT WAS GIVEN TO THE PARTY COORDINATOR RN.
[2019-02-01] MEDS: IPRATROPIUM BROM 0.5 MG/2.5ML INH SOL NEB PRN (20:54)
[2019-02-01] MEDS: ALBUTEROL SULF 2.5 MG/0.5ML(0.5%) NEB SOLN NEB PRN (20:54)
[2019-02-01 22:00] VITALS: BP 109/52
[2019-02-01 22:34] LABS: Urine Bacteria FEW /hpf (None Seen); Urine Blood 2+ /uL (Negative); Urine Hyaline Cast FEW /lpf (0 - 2); Urine Mucus FEW (None Seen); Urine WBC <1 /hpf (0 - 5)
[2019-02-02] MEDS ORDERED: LEVOFLOXACIN 750MG 150 ML IV SCH (04:00)
[2019-02-02] MEDS: SPIRONOLACTONE 25 MG TAB PO SCH ×2 (05:33→17:32)
[2019-02-02 05:34] LABS: Basophils # (auto) 0 uL; Basophils % (auto) 0.5 % (0.0-2.0); Eosinophils # (auto) 0.2 uL; Eosinophils % (auto) 4.5 % (0.0-7.0); Hematocrit 34.7 % (36.0-46.0); Hemoglobin 11.6 g/dL (12.2-16.2); Lymphocytes # (auto) 0.6 uL; Lymphocytes % (auto) 13.7 % (10.0-50.0); Mean Corpuscular Hemoglobin 30.2 pg (28.0-32.0); Mean Corpuscular Hgb Conc. 33.4 g/dL (32.0-36.0); Mean Corpuscular Volume 90.6 fL (80.0-100.0); Monocytes # (auto) 0.5 uL; Monocytes % (auto) 11.4 % (0.0-12.0); Neutrophils # (auto) 3.2 uL; Neutrophils % (auto) 69.9 % (37.0-80.0); Nucleated Red Blood Cells % 0.1 %; Platelet Count (auto) 62 10^3/uL (140-450); Red Blood Cells 3.83 10^6/uL (4.0-5.20); Red Cell Distribution Width 16.8 % (11.8-14.3); White Blood Cell 4.6 10^3/uL (4.4-10.8)
[2019-02-02 05:40] LABS: Albumin 2.2 g/dL (3.4-5.0); Calcium 7.6 mg/dL (8.5-10.1)
[2019-02-02 05:44] LABS: BUN/Creatinine Ratio 27.5; Bilirubin, Total 2.6 mg/dL (0.2-1.0); Total Protein 5.3 g/dL (6.4-8.2)
[2019-02-02 05:45] VITALS: BP 103/49
[2019-02-02] MEDS: LEVOTHYROXINE SODIUM 25 MCG TAB PO SCH (06:43)
--- NOTE | 2019-02-02 07:45 | NUR ---
Opening Shift Note Assumed care of patient, awake and alert. No S/S of distress/SOB or pain. Instructed on POC and to call for assist PRN, will continue to monitor for changes Q1hr and PRN. Bed in lowest position, side rails up x2, call light within reach.
[2019-02-02 08:00] VITALS: BP 113/58
[2019-02-02 08:43] VITALS: BP 113/58
--- NOTE | 2019-02-02 09:07 | NUR ---
Respiratory note: ASSESSED PT FOR PRN TX PT WAS AWAKE AND ALERT NO RESP DISTRESS NOTED. HR 62, RR 16, SPO2 93% ON ROOM AIR. BS ARE CLEAR, NO INDICATION FOR TX AT THIS TIME. PT KNOWS TO HAVE RT PAGED IF TX IS NEEDED.
[2019-02-02] MEDS: SILDENAFIL CITRATE 20 MG TAB PO SCH ×3 (09:24→20:01)
[2019-02-02] MEDS: PROPRANOLOL HCL 20 MG TAB PO SCH (09:24)
[2019-02-02] MEDS: PANTOPRAZOLE 40 MG TAB PO SCH (09:24)
[2019-02-02] MEDS: FUROSEMIDE 20 MG TAB PO SCH (09:24)
--- NOTE | 2019-02-02 11:15 | NUR ---
ROUNDS/ZULEIKA PATIENT AMBULATING IN ROOM, GAIT STEADY AND STABLE, NO DISTRESS. RR EQUAL AND NONLABORED. FAMILY AT BEDSIDE. SPOKE WITH DR TO ON TELEPHONE AND HE PLANS FOR HEART CATH 02/03/2019, NO ORDERS IN COMPUTER AT THIS TIME, STATED HE WILL SEE PATIENT TOMORROW. PATIENT UPDATED ON POC. ALL QUESTIONS AND CONCERNS ADDRESSED.
[2019-02-02 12:08] VITALS: BP 114/74
[2019-02-02] MEDS: ALBUTEROL SULF 2.5 MG/0.5ML(0.5%) NEB SOLN NEB PRN (13:30)
[2019-02-02] MEDS: IPRATROPIUM BROM 0.5 MG/2.5ML INH SOL NEB PRN (13:30)
[2019-02-02 16:37] VITALS: BP 139/63
--- NOTE | 2019-02-02 19:40 | NUR ---
A&OX4, RESTING IN BED, ROOM AIR, NO PAIN, NO PITTING EDEMA +2, 4-5 SCARS ON HER RIGHT LEG, NO OPEN WOUNDS, REST OF THE SKIN IS INTACT, INDEPENDENT, BED LOCKED IN LOWEST POSITION, SIDE RAILS UP X2, CALL LIGHT WITHIN REACH. FAMILY IS AT BED SIDE. WILL CONTINUE TO ROUND.
[2019-02-02 22:00] VITALS: BP 118/63
--- NOTE | 2019-02-02 22:35 | NUR ---
Respiratory note: PT SEEN AND ASSESSED FOR PRN MED NEB TX AT 2235. TX NOT INDICATED AT THIS TIME. PT DISPLAYING NO SIGNS OF DISTRESS AT THIS TIME AND STATED THAT SHE HAS NOT FELT SHORT OF BREATH. HR 63 RR 18 POX 95% ON ROOM AIR. PT AWARE TO CALL FOR RT IF ANY DISTRESS OCCURS.
[2019-02-03 05:48] VITALS: BP 117/61
[2019-02-03] MEDS: SPIRONOLACTONE 25 MG TAB PO SCH ×2 (05:58→17:40)
[2019-02-03] MEDS: LEVOTHYROXINE SODIUM 25 MCG TAB PO SCH (05:59)
--- NOTE | 2019-02-03 07:20 | NUR ---
Opening Shift Note Assumed care of patient, awake and alert. No S/S of distress/SOB or pain. Instructed on POC and to call for assist PRN, will continue to monitor for changes Q1hr and PRN.
[2019-02-03 07:43] VITALS: BP 105/66
[2019-02-03 08:00] VITALS: BP 105/66
[2019-02-03] MEDS: SILDENAFIL CITRATE 20 MG TAB PO SCH ×3 (08:00→19:53)
--- NOTE | 2019-02-03 08:50 | NUR ---
Heart Cath Patient transported to warehouse general laborer for procedure
[2019-02-03] MEDS: PANTOPRAZOLE 40 MG TAB PO SCH (09:55)
[2019-02-03] MEDS: PROPRANOLOL HCL 20 MG TAB PO SCH (09:55)
[2019-02-03] MEDS: FUROSEMIDE 20 MG TAB PO SCH (09:55)
[2019-02-03] MEDS ORDERED: fentaNYL CITRATE 100 MCG/2 ML VL ONE (11:37)
[2019-02-03] MEDS ORDERED: MIDAZOLAM HCL 1MG/1ML-2 ML VIAL ONE (11:38)
[2019-02-03] MEDS ORDERED: LIDOCAINE 2%HCL (LOCAL ANESTH.) INJ 20ML MDV ONE (11:38)
[2019-02-03] MEDS: AMBRISENTAN 5 MG PO SCH (13:39)
[2019-02-03] MEDS ORDERED: SILDENAFIL CITRATE 20 MG TAB PO SCH ×2 (14:00→14:15)
[2019-02-03] MEDS ORDERED: SILDENAFIL CITRATE 20 MG TAB PO ONE ×2 (14:15→20:00)
--- NOTE | 2019-02-03 15:00 | NUR ---
IV removal Right AC IV DC'd with clean sterile technique, catheter fully intact. Pressure dressing applied to site. Patient tolerated well. NOTE: [] IV insertion IV access obtained in wetlands conservation laborer, 22 gauge catheter at left forearm.
[2019-02-03 16:34] VITALS: BP 102/51
--- NOTE | 2019-02-03 19:00 | NUR ---
OPENING NOTE Received report from day shift RN. Patient is A&O X's 4 with no s/s of distress at this time. Patient reported mild SOB. RT is at bedside to provide breathing treatment. O2 saturation is 97% at this time. Educated patient of POC and to use call light when in need of assistance. Patient verbalized understanding. Gauze to right groin is C/D/I. Bed is in lowest/locked position with side rails up X's 2. Will continue to monitor and round hourly/PRN.
[2019-02-03] MEDS: IPRATROPIUM BROM 0.5 MG/2.5ML INH SOL NEB PRN (19:39)
[2019-02-03] MEDS: ALBUTEROL SULF 2.5 MG/0.5ML(0.5%) NEB SOLN NEB PRN (19:40)
[2019-02-03 22:09] VITALS: BP 117/61
[2019-02-04 05:00] VITALS: BP 108/55
[2019-02-04 06:05] LABS: Potassium 4.4 mmol/L (3.5-5.1)
[2019-02-04] MEDS: LEVOTHYROXINE SODIUM 25 MCG TAB PO SCH (06:12)
[2019-02-04] MEDS: SPIRONOLACTONE 25 MG TAB PO SCH (06:12)
[2019-02-04 06:13] LABS: Albumin 1.9 g/dL (3.4-5.0); BUN/Creatinine Ratio 38.6; Bilirubin, Total 2.1 mg/dL (0.2-1.0); Calcium 7.6 mg/dL (8.5-10.1); Total Protein 4.8 g/dL (6.4-8.2)
--- NOTE | 2019-02-04 06:15 | NUR ---
PAGED RT RT paged. Patient is requesting breathing treatment.
[2019-02-04] MEDS: ALBUTEROL SULF 2.5 MG/0.5ML(0.5%) NEB SOLN NEB PRN (06:25)
[2019-02-04] MEDS: IPRATROPIUM BROM 0.5 MG/2.5ML INH SOL NEB PRN (06:25)
[2019-02-04 08:00] VITALS: BP 117/72
[2019-02-04] MEDS ORDERED: SILDENAFIL CITRATE 20 MG TAB PO SCH (08:00)
[2019-02-04 08:45] VITALS: BP 117/72
[2019-02-04] MEDS: PROPRANOLOL HCL 20 MG TAB PO SCH (09:19)
[2019-02-04] MEDS: PANTOPRAZOLE 40 MG TAB PO SCH (09:19)
[2019-02-04] MEDS: AMBRISENTAN 5 MG PO SCH (09:20)
[2019-02-04] MEDS: FUROSEMIDE 20 MG TAB PO SCH (09:20)
[2019-02-04 10:52] VITALS: BP 117/72
--- NOTE | 2019-02-04 12:15 | NUR ---
Discharge from Tele Discharge instructions given as ordered. Encourage to follow up with PMD as instructed. All questions and concerns addressed. Patient verbalized understanding. Home medications held in Pharmacy returned to patient. IV removed with catheter intact, pressure dressing applied. Telemetry unit returned to ICU. Patient taken to vehicle via wheelchair with all personal belongings, accompanied by staff and family member. No distress noted at time of departure.
[2019-02-04 12:21] VITALS: BP 124/54
== END 2019-02-04 13:33 | disposition home or self-care (01) | DRG 286 ==
LOC: ER 22:06 → TELE 02-01 06:52 → TELE-CENTR 02-01 12:40
PROVIDERS: ADMIT Nurse Practitioner; ATTEND Internal Medicine
PROC: 4A023N6 Measurement of Cardiac Sampling and Pressure, Right Heart, Percutaneous Approach (ICD-10-PCS; principal; 2019-02-03)
DX: I11.0 Hypertensive heart disease with heart failure (principal); J15.5 Pneumonia due to Escherichia coli; J96.90 Respiratory failure, unspecified, unspecified whether with hypoxia or hypercapnia; J44.0 Chronic obstructive pulmonary disease with (acute) lower respiratory infection; J44.1 Chronic obstructive pulmonary disease with (acute) exacerbation; I27.21 Secondary pulmonary arterial hypertension; K74.60 Unspecified cirrhosis of liver; D64.9 Anemia, unspecified; R63.4 Abnormal weight loss; E03.9 Hypothyroidism, unspecified; I50.33 Acute on chronic diastolic (congestive) heart failure; B19.20 Unspecified viral hepatitis C without hepatic coma; Z83.3 Family history of diabetes mellitus; Z90.710 Acquired absence of both cervix and uterus; Z79.899 Other long term (current) drug therapy; Z68.35 Body mass index [BMI] 35.0-35.9, adult; Z88.5 Allergy status to narcotic agent
CPT/HCPCS: 36415; 71046; 80053; 81001; 83735; 83880; 84484; 85025; 85610; 85730; 87040; 87070; 87077; 87186; 87205; 93005; 94640; 96374; 96375; A6257; G0378; J1956; J2250

== ENCOUNTER → 2019-02-16 | Outpatient (CLI) | payer BC ==
[~2019-02-16] VITALS: Ht 30.5 cm; Wt 76.5 kg
[~2019-02-16] MED LIST changes: +FUROSEMIDE 40 MG/4 ML VIAL IV ONE; +FUROSEMIDE 40 MG/4 ML VIAL ONE; +POTASSIUM CHL 10 Meq TABLET PO ONE
[2019-02-16 09:30] VITALS: BP 141/51
--- NOTE | 2019-02-16 10:20 | NUR ---
CARDIODYNAMICS PERFORMED BY LAURIE DOLL AND RESULTS REVIEWED WITH PATIENT BY EVELIN LOUIS.
[2019-02-16 10:45] VITALS: BP 132/50
--- NOTE | 2019-02-16 10:45 | NUR ---
CHF CLINIC Discharge Instructions See e-MAR for any mediations given with this visit. Patient education given on disease process. Patient verbalized understanding. Previous labs reviewed. Patient discharged in stable condition with after care instructions and follow up appointment 03/06/19. NOTE LASIX IVP ADMIN BY EVELIN LOUIS POTASSIUM PO ADMIN BY EVELIN LOUIS 10 DAY SAMPLE SUPPLY OF LATERAS GIVEN TO PATIENT.
[2019-02-16 12:29] LABS: Basophils # (auto) 0 uL; Basophils % (auto) 0.4 % (0.0-2.0); Eosinophils # (auto) 0.1 uL; Hemoglobin 11.4 g/dL (12.2-16.2); Lymphocytes # (auto) 0.5 uL; Monocytes % (auto) 10.5 % (0.0-12.0); Neutrophils # (auto) 2.4 uL
[2019-02-16 12:31] LABS: Eosinophils % (auto) 3.4 % (0.0-7.0); Hematocrit 34.2 % (36.0-46.0); Lymphocytes % (auto) 14.8 % (10.0-50.0); Mean Corpuscular Hgb Conc. 33.4 g/dL (32.0-36.0); Mean Corpuscular Volume 92.6 fL (80.0-100.0); Monocytes # (auto) 0.4 uL; Neutrophils % (auto) 70.9 % (37.0-80.0); Nucleated Red Blood Cells % 0.1 %; Platelet Count (auto) 53 10^3/uL (140-450); Red Blood Cells 3.69 10^6/uL (4.0-5.20); Red Cell Distribution Width 17.5 % (11.8-14.3); White Blood Cell 3.4 10^3/uL (4.4-10.8)
[2019-02-16 12:46] LABS: Potassium 3.9 mmol/L (3.5-5.1)
[2019-02-16 12:55] LABS: Albumin 2.7 g/dL (3.4-5.0); BUN/Creatinine Ratio 33.3; Bilirubin, Total 3.1 mg/dL (0.2-1.0); Calcium 8.3 mg/dL (8.5-10.1); Magnesium 2.2 mg/dL (1.6-2.6); Total Protein 5.9 g/dL (6.4-8.2)
== END | disposition home or self-care (01) ==
LOC: CHF HDHVI 09:29
PROVIDERS: ATTEND Internal Medicine Cardiovascular Disease
DX: I27.21 Secondary pulmonary arterial hypertension (principal); I11.0 Hypertensive heart disease with heart failure; E83.40 Disorders of magnesium metabolism, unspecified; D64.9 Anemia, unspecified; I50.32 Chronic diastolic (congestive) heart failure; J44.9 Chronic obstructive pulmonary disease, unspecified; E03.9 Hypothyroidism, unspecified; B19.20 Unspecified viral hepatitis C without hepatic coma; Z79.899 Other long term (current) drug therapy; Z90.710 Acquired absence of both cervix and uterus
CPT/HCPCS: 36415; 80053; 83735; 85025; 93701; 96374; G0463; J1940

== ENCOUNTER → 2019-03-14 | Outpatient (CLI) | payer BC ==
[~2019-03-14] MED LIST changes: +FURO40TA PO; +FUROSEMIDE 100 MG/10ML VIAL IV ONE; -FUROSEMIDE 40 MG/4 ML VIAL IV ONE; +POTASSIUM CHL 20 Meq TABLET PO ONE
[2019-03-14 10:30] VITALS: BP 136/41
--- NOTE | 2019-03-14 11:30 | NUR ---
MEDICATION REVIEW BY MYNOR LOUIS. STOP LETARIS AND START UPTRAVI
[2019-03-14 12:06] VITALS: BP 140/58
--- NOTE | 2019-03-14 12:06 | NUR ---
PAH EVALUATION. NOTED TO HAVE DYSPNEA AND SWELLING IN BILATERAL FEET. SKIN PUFFING OVER SHOES BILATERALLY. VS WNL. 3 TIMES ATTEMPT FOR LAB ACQUISITION WITH LABS DRAWN AND SENT. MEDICATED WITH LASIX THROUGH [facility]Y. VS WNL. UP TO VOID X 2 AFTER IV LASIX. RTC IN 1 WEEK POST FOLLOWUP. Discharge Instructions See e-MAR for any mediations given with this visit. Patient education given on disease process. Patient verbalized understanding. Previous labs reviewed. Patient discharged in stable condition with after care instructions and follow up appointment.
[2019-03-14 16:06] LABS: Potassium 3.7 mmol/L (3.5-5.1)
== END | disposition home or self-care (01) ==
LOC: CHF HDHVI 11:10
PROVIDERS: ATTEND Internal Medicine Cardiovascular Disease
DX: I11.0 Hypertensive heart disease with heart failure (principal); I50.32 Chronic diastolic (congestive) heart failure; I27.20 Pulmonary hypertension, unspecified; E87.6 Hypokalemia; R94.4 Abnormal results of kidney function studies; E83.40 Disorders of magnesium metabolism, unspecified; J44.9 Chronic obstructive pulmonary disease, unspecified; E03.9 Hypothyroidism, unspecified; Z79.899 Other long term (current) drug therapy; Z87.01 Personal history of pneumonia (recurrent); Z90.710 Acquired absence of both cervix and uterus
CPT/HCPCS: 36415; 82565; 83735; 84132; 84520; 96374; G0463; J1940

== ENCOUNTER → 2019-04-14 | Outpatient (CLI) | payer BC ==
[~2019-04-14] MED LIST changes: -FUROSEMIDE 100 MG/10ML VIAL IV ONE; -FUROSEMIDE 40 MG/4 ML VIAL ONE; +ONDANSETRON HCL 4 MG/2 ML VIAL IV ONE; +ONDANSETRON HCL 4 MG/2 ML VIAL ONE; -POTASSIUM CHL 10 Meq TABLET PO ONE; -POTASSIUM CHL 20 Meq TABLET PO ONE
--- NOTE | 2019-04-14 12:35 | NUR ---
CHF PT ARRIVED AT THE CHF CLINIC FOR F/U POST HOSPITALIZATION. EXPERIENCING DIZZINESS, NAUSEA, CONFUSION AND ANXIETY . DISCUSSED PATIENT MEDICATIONS WITH PATIENT AND DAUGHTER AND SON. PT WAS ALONE AND MIXED MEDICATIONS UP. MYNOR LOUIS DISCUSSED [PLAN OF CARE AND MEDICATIONS , PATIENT AND FAMILY VERBALIZED UNDERSTANDING
[2019-04-14 14:55] VITALS: BP 129/55
--- NOTE | 2019-04-14 14:55 | NUR ---
Discharge Instructions See e-MAR for any mediations given with this visit. Patient education given on disease process. Patient verbalized understanding. Previous labs reviewed. Patient discharged in stable condition with after care instructions and follow up appointment. MEDICATIONS 1442 ZOFRAN 4MG IVP X 1 PT NAUSEA RELIEVED BEFORE BEING DISCHARGED
[2019-04-14 15:52] LABS: BUN/Creatinine Ratio 26.9; Calcium 8.8 mg/dL (8.5-10.1); Magnesium 2.2 mg/dL (1.6-2.6); Potassium 4.7 mmol/L (3.5-5.1)
[2019-04-14 16:00] LABS: Basophils # (auto) 0 uL; Eosinophils # (auto) 0.1 uL; Hemoglobin 11.1 g/dL (12.2-16.2); Lymphocytes # (auto) 0.4 uL; Monocytes # (auto) 0.4 uL; Nucleated Red Blood Cells % 0.1 %; Red Blood Cells 3.57 10^6/uL (4.0-5.20); Red Cell Distribution Width 17.3 % (11.8-14.3)
[2019-04-14 16:02] LABS: Basophils % (auto) 0.6 % (0.0-2.0); Eosinophils % (auto) 2.7 % (0.0-7.0); Hematocrit 33.1 % (36.0-46.0); Lymphocytes % (auto) 10.7 % (10.0-50.0); Mean Corpuscular Hgb Conc. 33.6 g/dL (32.0-36.0); Mean Corpuscular Volume 92.5 fL (80.0-100.0); Monocytes % (auto) 11.6 % (0.0-12.0); Neutrophils # (auto) 2.5 uL; Neutrophils % (auto) 74.4 % (37.0-80.0); Platelet Count (auto) 56 10^3/uL (140-450); White Blood Cell 3.4 10^3/uL (4.4-10.8)
[2019-04-14 16:46] VITALS: BP 141/59
== END | disposition home or self-care (01) ==
LOC: CHF HDHVI 12:14
PROVIDERS: ATTEND Internal Medicine Cardiovascular Disease
DX: I27.21 Secondary pulmonary arterial hypertension (principal); I11.0 Hypertensive heart disease with heart failure; I50.42 Chronic combined systolic (congestive) and diastolic (congestive) heart failure; E11.9 Type 2 diabetes mellitus without complications; D64.9 Anemia, unspecified; E83.40 Disorders of magnesium metabolism, unspecified; J44.9 Chronic obstructive pulmonary disease, unspecified; E03.9 Hypothyroidism, unspecified; E44.0 Moderate protein-calorie malnutrition; Z68.41 Body mass index [BMI] 40.0-44.9, adult; Z90.710 Acquired absence of both cervix and uterus; Z79.899 Other long term (current) drug therapy
CPT/HCPCS: 36415; 80048; 83735; 83880; 85025; 96374; G0463; J2405

== ENCOUNTER 2019-04-16 11:04 | Emergency (ER) | payer BC ==
[~2019-04-16] VITALS: Ht 149.9 cm; Wt 59.0 kg
[~2019-04-16 11:04] MED LIST changes: +FURO1TAB31 PO; -FURO40TA PO; -ONDANSETRON HCL 4 MG/2 ML VIAL IV ONE; -ONDANSETRON HCL 4 MG/2 ML VIAL ONE
[2019-04-16] MEDS ORDERED: MECLIZINE HCL 25 MG TAB PO ONE (11:30)
[2019-04-16 12:39] LABS: Basophils # (auto) 0 uL; Eosinophils # (auto) 0.1 uL; Hemoglobin 12.2 g/dL (12.2-16.2); Neutrophils # (auto) 3.1 uL
[2019-04-16 12:41] LABS: Basophils % (auto) 0.4 % (0.0-2.0); Eosinophils % (auto) 2.2 % (0.0-7.0); Hematocrit 37.1 % (36.0-46.0); Lymphocytes # (auto) 0.7 uL; Lymphocytes % (auto) 15.7 % (10.0-50.0); Mean Corpuscular Hemoglobin 30.9 pg (28.0-32.0); Mean Corpuscular Volume 93.6 fL (80.0-100.0); Monocytes # (auto) 0.5 uL; Monocytes % (auto) 11.8 % (0.0-12.0); Neutrophils % (auto) 69.9 % (37.0-80.0); Platelet Count (auto) 56 10^3/uL (140-450); Red Blood Cells 3.96 10^6/uL (4.0-5.20); Red Cell Distribution Width 17.6 % (11.8-14.3); White Blood Cell 4.4 10^3/uL (4.4-10.8)
[2019-04-16 12:50] LABS: Urine Bacteria FEW /hpf (None Seen); Urine Blood 1+ /uL (Negative); Urine Budding Yeast OCCASIONAL /hpf (None Seen); Urine Specific Gravity 1.007 (1.001-1.035); Urine WBC 1 /hpf (0 - 5)
[2019-04-16 12:51] LABS: Albumin 3.3 g/dL (3.4-5.0); Anion Gap 10 (5-15); Blood Urea Nitrogen 34 mg/dL (7-18); Calcium 8.8 mg/dL (8.5-10.1); Carbon Dioxide 22 mmol/L (21-32); Chloride 108 mmol/L (98-107); Glucose 112 mg/dL (74-106); Potassium 4.3 mmol/L (3.5-5.1); Sodium 140 mmol/L (136-145)
[2019-04-16 12:56] LABS: Alanine Aminotransferase 30 U/L (13-56); Alkaline Phosphatase 103 U/L (45-117); Aspartate Aminotransferase 53 U/L (15-37); BUN/Creatinine Ratio 30.4; Bilirubin, Total 3.5 mg/dL (0.2-1.0); GFR African American 63 mL/min; GFR Non-African American 52 mL/min; Total Protein 6.8 g/dL (6.4-8.2)
[2019-04-16 13:36] VITALS: BP 128/52
== END 2019-04-16 15:13 | disposition home or self-care (01) ==
LOC: ER 11:04
DX: R42 Dizziness and giddiness (principal); J45.909 Unspecified asthma, uncomplicated; Z90.710 Acquired absence of both cervix and uterus
CPT/HCPCS: 36415; 70450; 71045; 80053; 81001; 84484; 85025; 93005; 99284; J8597

== ENCOUNTER 2019-04-16 18:16 | Emergency (ER) | payer BC ==
[~2019-04-16] VITALS: Ht 149.9 cm; Wt 60.3 kg
[~2019-04-16 18:16] MED LIST changes: -FURO1TAB31 PO; +FURO40TA PO
[2019-04-16 18:46] VITALS: BP 155/46
[2019-04-16 19:29] LABS: Basophils # (auto) 0 uL; Basophils % (auto) 0.9 % (0.0-2.0); Eosinophils # (auto) 0.2 uL; Hematocrit 37.2 % (36.0-46.0); Lymphocytes # (auto) 0.7 uL; Mean Corpuscular Hemoglobin 30.8 pg (28.0-32.0); Mean Corpuscular Hgb Conc. 32.3 g/dL (32.0-36.0); Mean Corpuscular Volume 95.2 fL (80.0-100.0); Monocytes # (auto) 0.5 uL; Monocytes % (auto) 11.6 % (0.0-12.0); Neutrophils # (auto) 3.2 uL; Neutrophils % (auto) 69.5 % (37.0-80.0); Nucleated Red Blood Cells % 0.1 %; Platelet Count (auto) 72 10^3/uL (140-450); Red Blood Cells 3.91 10^6/uL (4.0-5.20); Red Cell Distribution Width 17.6 % (11.8-14.3); White Blood Cell 4.6 10^3/uL (4.4-10.8)
[2019-04-16 19:45] LABS: Alanine Aminotransferase 34 U/L (13-56); Albumin 3.2 g/dL (3.4-5.0); Anion Gap 11 (5-15); Aspartate Aminotransferase 57 U/L (15-37); BUN/Creatinine Ratio 27.3; Blood Urea Nitrogen 35 mg/dL (7-18); Calcium 8.8 mg/dL (8.5-10.1); Carbon Dioxide 21 mmol/L (21-32); Chloride 107 mmol/L (98-107); GFR African American 54 mL/min; GFR Non-African American 45 mL/min; Glucose 136 mg/dL (74-106); Potassium 4.4 mmol/L (3.5-5.1); Sodium 139 mmol/L (136-145)
[2019-04-16 19:51] LABS: Alkaline Phosphatase 109 U/L (45-117)
== END 2019-04-16 23:05 | disposition left against medical advice (07) ==
LOC: ER 18:26
DX: R42 Dizziness and giddiness (principal); Z53.21 Procedure and treatment not carried out due to patient leaving prior to being seen by health care provider
CPT/HCPCS: 36415; 80053; 82140; 84484; 85025

== ENCOUNTER → 2020-07-12 | Outpatient (CLI) | payer BC, MEDICARE ==
[~2020-07-12] MED LIST changes: +FURO1TAB31 PO; -FURO40TA PO
[2020-07-12 10:37] LABS: Basophils # (auto) 0 10 ^3/uL (0-0.2); Eosinophils # (auto) 0.1 10 ^3/uL (0-0.8); Lymphocytes # (auto) 0.3 10 ^3/uL (0.4-5.4); Monocytes # (auto) 0.3 10 ^3/uL (0-1.3); Monocytes % (auto) 8.5 % (0.0-12.0); Neutrophils # (auto) 2.5 10 ^3/uL (1.6-8.6)
[2020-07-12 10:39] LABS: Basophils % (auto) 0.3 % (0.0-2.0); Eosinophils % (auto) 3.2 % (0.0-7.0); Hematocrit 29.8 % (36.0-46.0); Lymphocytes % (auto) 9.5 % (10.0-50.0); Mean Corpuscular Hemoglobin 30.6 pg (28.0-32.0); Mean Corpuscular Hgb Conc. 33.6 g/dL (32.0-36.0); Mean Corpuscular Volume 91.1 fL (80.0-100.0); Neutrophils % (auto) 78.5 % (37.0-80.0); Platelet Count (auto) 56 10^3/uL (140-450); Red Blood Cells 3.27 10^6/uL (4.0-5.20); Red Cell Distribution Width 16.1 % (11.8-14.3); White Blood Cell 3.1 10^3/uL (4.4-10.8)
[2020-07-12 10:55] LABS: INR 1.2 (0.9-1.15)
[2020-07-12 11:04] LABS: Albumin 3.2 g/dL (3.4-5.0); Potassium 4.1 mmol/L (3.5-5.1)
[2020-07-12 11:07] LABS: BUN/Creatinine Ratio 22.9; Bilirubin, Total 2.2 mg/dL (0.2-1.0); Total Protein 5.9 g/dL (6.4-8.2)
== END | disposition home or self-care (01) ==
LOC: LAB 10:22
PROVIDERS: ATTEND Internal Medicine
DX: K74.60 Unspecified cirrhosis of liver (principal)
CPT/HCPCS: 36415; 80053; 84443; 85025; 85610; 85652